=== PATIENT | male | born 1960 | race Caucasian/White ===

== ENCOUNTER → 2016-12-10 | Outpatient (CLI) | payer BC ==
[~2016-12-10] MED LIST: ASPIRIN81 MG PO; BUPROPION HCL150 M1 PO; CLEOCIN HCL300 M1 PO; COREG3.125 MG PO; CRESTOR PO; EFFEXOR75 M1 PO; GLYBURIDE2.5 M1 PO; LISINOPRIL-HCTZ1 T15 PO; LIVALO4 MG PO; METFORMIN PO; NITROSTAT0.4 MG SL; OMEPRAZOLE20 M2 PO; VOLTAREN75 MG PO
--- NOTE | ~2016-12-10 | TH ---
Unit #: [id number] #: [id number] Patient: SATISH AMARO [id number] [address] [address] [id number] O MR#: [id number] NAME: SATISH AMARO. : 1960 SEX: M STUDY DATE/TIME: 12/10/2016 UNIT: [facility] ROOM: STUDY DESCRIPTION: Attending Physician: Edgar Varghese M.D. Referring Physician: Edgar Varghese M.D. Primary Care Physician: Reginaldo Block M.D. CARDIOLOGY REPORT EXAM Exercise Cardiolite stress test, nuclear portion. PROCEDURE Using technetium 99m labeled Cardiolite, rest and stress SPECT images were obtained. Multiple SPECT images were obtained in various views including horizontal and vertical long axis and short axis views of the left ventricle. Images were obtained by gated SPECT method. The patient was administered 10.8 mCi of Cardiolite at rest. The patient was administered 31.7 mCi of Cardiolite at peak exercise. Total exercise time is 10 minutes and 30 seconds. On the stress images, there is normal perfusion noted. The rest images show mild decreased isotope activity inferoapically consistent with soft tissue artifact. Comparing rest and stress images, there is no stress-induced ischemia noted. The left ventricular ejection fraction is calculated to be 55%. There is no focal wall motion abnormality seen. CONCLUSION 1. No stress-induced ischemia noted. 2. The left ventricular ejection fraction is calculated to be 55%. 3. There is no focal wall motion abnormality seen. 4. Normal exercise Cardiolite stress test. Dictated by... Viktoriya Suarez TD: 12/10/2016 16:08 JOB #: [id number] CARDIOLOGY REPORT X Estephania Mccurdy MD <ELECTRONICALLY SIGNED> 04/23/17 1429 CARDIOLOGY REPORT
--- NOTE | ~2016-12-10 | ST ---
Unit #: [id number] #: [id number] Patient: SATISH AMARO [id number] [address] [address] [id number] O MR#: [id number] NAME: SATISH AMARO. : 1960 SEX: M STUDY DATE/TIME: 12/10/2016 UNIT: [facility] ROOM: STUDY DESCRIPTION: Attending Physician: Edgar Varghese M.D. Referring Physician: Edgar Varghese M.D. Primary Care Physician: Reginaldo Block M.D. CARDIOLOGY REPORT EXAM EKG portion of a treadmill Cardiolite stress test. REASON FOR EXAM Nonobstructive coronary artery disease and elevated risk factors. FINDINGS Baseline EKG: Normal sinus rhythm, rate of 71 beats per minute with some left axis deviation and occasional PVC noted. PROCEDURE The patient exercised on the treadmill according to a modified Sergio protocol for a total of 10 minutes 30 seconds. Max heart rate was 142 beats per minute, representing an 85% max predicted heart rate of 166 beats per minute. Resting blood pressure 139/92, increased to a maximum blood pressure of 192/90. The patient's symptoms included some shortness of breath after several minutes of exercise. The patient exercised and achieved a total of 9.8 METs. There were some PVCs noted. The test was stopped due to maximum exertion. IMPRESSION 1. This was a negative EKG test. 2. No ST segment changes were noted. 3. The patient did have some shortness of breath that developed in stage 3 and we modified it somewhat. After 7 minutes of exercise, we held the stage to make this a modified Sergio protocol. 4. There were some PVCs noted. 5. Please correlate with Cardiolite imaging. Dictated by... Jennifer Murray APRN for Viktoriya Villa TD: 12/10/2016 11:52 JOB #: [id number] Unit #: [id number] #: [id number] Patient: SATISH AMARO CARDIOLOGY REPORT X CARDIOLOGY REPORT
== END | disposition home or self-care (01) ==
LOC: CNUC 08:23
DX: I20.9 Angina pectoris, unspecified (principal); I10 Essential (primary) hypertension; E11.65 Type 2 diabetes mellitus with hyperglycemia; E78.5 Hyperlipidemia, unspecified; I49.3 Ventricular premature depolarization
CPT/HCPCS: 78452; 93017; A9500